=== PATIENT | male | born 1955 | race African-American/Black ===

== ENCOUNTER 2019-05-07 07:39 | Day surgery (SDC) | payer MEDICAID ==
[~2019-05-07] VITALS: Ht 175.3 cm; Wt 57.2 kg
[~2019-05-07 07:39] MED LIST: SODIUM CHLORIDE 0.9% 1,000 ML IV ONE
[2019-05-07] MEDS ORDERED: LIDOCAINE/PF 2% 5 ML VIAL IM ONE (07:40)
[2019-05-07] MEDS ORDERED: SODIUM CHLORIDE 0.9% 1,000 ML IV ONE (08:00)
== END 2019-05-07 10:20 | disposition home or self-care (01) ==
LOC: SURGERY 07:39
PROVIDERS: ATTEND Internal Medicine Gastroenterology
DX: Z12.11 Encounter for screening for malignant neoplasm of colon (principal); K64.8 Other hemorrhoids; K57.30 Diverticulosis of large intestine without perforation or abscess without bleeding; F17.210 Nicotine dependence, cigarettes, uncomplicated; Z82.49 Family history of ischemic heart disease and other diseases of the circulatory system; Z79.899 Other long term (current) drug therapy
CPT/HCPCS: 45378; 93005; J3490; J7030

== ENCOUNTER 2021-08-07 16:42 | Emergency (ER) | payer MEDICAID, OTHER ==
[~2021-08-07] VITALS: Ht 172.7 cm; Wt 63.6 kg
[2021-08-07 17:02] VITALS: BP 139/107
[2021-08-07] MEDS ORDERED: IBUPROFEN 600 MG TABLET PO ONE (17:15)
== END 2021-08-07 17:29 | disposition home or self-care (01) ==
LOC: EMS 16:44
DX: S40.011A Contusion of right shoulder, initial encounter (principal); S80.211A Abrasion, right knee, initial encounter; S80.212A Abrasion, left knee, initial encounter; S00.81XA Abrasion of other part of head, initial encounter; I10 Essential (primary) hypertension; V19.9XXA Pedal cyclist (driver) (passenger) injured in unspecified traffic accident, initial encounter; Y93.55 Activity, bike riding; Y92.89 Other specified places as the place of occurrence of the external cause; Y99.8 Other external cause status
CPT/HCPCS: 99283